=== PATIENT | female | born 1990 | race Caucasian/White ===

== ENCOUNTER 2016-03-09 22:49 | Emergency (ER) | payer MEDICARE, MEDICAID ==
[2016-03-09 23:48] LABS: BASOPHILS 0.3 % (0.0-2.0); EOSINOPHILS 3.1 % (0-7); HEMATOCRIT 45.7 % (36.0-48.0); HEMOGLOBIN 15.1 g/dL (12-16); IMMATURE GRANULOCYTES 0.2 % (0-5); LYMPHOCYTES 26.5 % (15-50); MCV 90.7 fL (80.0-100.0); MEAN PLATELET VOLUME 10.2 fL (7.4-10.4); MONOCYTES 7.1 % (2-11); NEUTROPHILS 62.8 % (40-80); PLATELET COUNT 234 10x3/uL (130-400); RBC 5.04 10x6/uL (4.00-5.40); RDW 13.7 % (11.5-14.5); WBC 11.7 10x3/uL (4.8-10.8)
[2016-03-09 23:56] LABS: CALC OSMOLALITY 279 mosm/kg (275-300); CALCIUM 9.4 mg/dL (8.5-10.1); CARBON DIOXIDE 30.1 mmol/L (21.0-32.0); CHLORIDE - SERUM 105 mmol/L (98-107); CREATININE - SERUM 0.6 mg/dL (0.6-1.3); GLUCOSE 83 mg/dL (74-106); SODIUM 142 mmol/L (136-145); UREA NITROGEN 8 mg/dL (7-18); eGFR NON AFRICAN AMERICAN > 90 mL/min (90-120)
== END 2016-03-10 01:20 | disposition home or self-care (01) ==
LOC: D.ER 22:49
PROVIDERS: Physician Assistant Medical
DX: S02.2XXA Fracture of nasal bones, initial encounter for closed fracture (principal); V44.6XXA Car passenger injured in collision with heavy transport vehicle or bus in traffic accident, initial encounter; Y93.89 Activity, other specified; Y92.410 Unspecified street and highway as the place of occurrence of the external cause; F17.200 Nicotine dependence, unspecified, uncomplicated

== ENCOUNTER 2016-05-13 14:14 | Emergency (ER) | payer MEDICARE, MEDICAID | END 2016-05-13 15:56 | disposition home or self-care (01) | LOC: D.ER 14:14 | DX: S99.921A Unspecified injury of right foot, initial encounter (principal); W20.8XXA Other cause of strike by thrown, projected or falling object, initial encounter; Y93.89 Activity, other specified; Y92.89 Other specified places as the place of occurrence of the external cause; S90.31XA Contusion of right foot, initial encounter; M79.671 Pain in right foot; F17.200 Nicotine dependence, unspecified, uncomplicated ==

== ENCOUNTER 2017-05-21 17:19 | Emergency (ER) | payer MEDICARE, MEDICAID ==
[2017-05-21 18:39] LABS: APPEARANCE HAZY (CLEAR); BILIRUBIN NEGATIVE (NEGATIVE); COLOR YELLOW (YELLOW); GLUCOSE NEGATIVE (NEGATIVE); HCG URINE POSITIVE (NEGATIVE); KETONE NEGATIVE (NEGATIVE); NITRITE NEGATIVE (NEGATIVE); PROTEIN NEGATIVE (NEGATIVE); SPECIFIC GRAVITY 1.025 (1.005-1.020); UROBILINOGEN NORMAL (NORMAL)
[2017-05-21 18:47] LABS: AMORPHOUS SEDIMENT <1+ /lpf (NONE SEEN); BACTERIA MANY /hpf (NONE SEEN); EPITHELIAL CELLS 0-5 /hpf (0-5); GRANULAR CAST 0-5 /lpf (NONE SEEN); HYALINE CAST OCC /lpf (NONE SEEN); MUCUS <1+ /lpf (NONE SEEN); RED CELLS - URINE 0-5 /hpf (0-5)
== END 2017-05-21 19:07 | disposition home or self-care (01) ==
LOC: D.ER 17:19
PROVIDERS: Emergency Medicine
DX: N39.0 Urinary tract infection, site not specified (principal); J20.9 Acute bronchitis, unspecified; F17.200 Nicotine dependence, unspecified, uncomplicated

== ENCOUNTER 2017-06-01 13:44 | Emergency (ER) | payer MEDICARE, MEDICAID ==
[2017-06-01 14:47] LABS: HCG SERUM POSITIVE (NEGATIVE)
[2017-06-01 14:51] LABS: BASOPHILS 0.2 % (0-2); HEMATOCRIT 39.4 % (36.0-48.0); HEMOGLOBIN 13.1 g/dL (12-16); IMMATURE GRANULOCYTES 0.2 % (0-5); MCH 29.8 pg (26.0-34.0); MCHC 33.2 g/dL (31.0-37.0); MCV 89.7 fL (80.0-100.0); MEAN PLATELET VOLUME 9.7 fL (7.4-10.4); MONOCYTES 7.1 % (2-11); NEUTROPHILS 71.5 % (40-80); PLATELET COUNT 235 10x3/uL (130-400); RBC 4.39 10x6/uL (4.00-5.40); RDW 13.2 % (11.5-14.5); WBC 10.9 10x3/uL (4.8-10.8)
[2017-06-01 15:51] LABS: APPEARANCE SLT CLOUDY (CLEAR); BILIRUBIN NEGATIVE (NEGATIVE); COLOR YELLOW (YELLOW); GLUCOSE NEGATIVE (NEGATIVE); KETONE NEGATIVE (NEGATIVE); NITRITE NEGATIVE (NEGATIVE); PROTEIN NEGATIVE (NEGATIVE); SPECIFIC GRAVITY 1.015 (1.005-1.020); UROBILINOGEN NORMAL (NORMAL)
[2017-06-01 15:53] LABS: BACTERIA MODERATE /hpf (NONE SEEN); MUCUS <1+ /lpf (NONE SEEN); RED CELLS - URINE 0-5 /hpf (0-5)
== END 2017-06-01 16:13 | disposition home or self-care (01) ==
LOC: D.ER 13:44
PROVIDERS: Emergency Medicine
DX: O26.851 Spotting complicating pregnancy, first trimester (principal); Z3A.09 9 weeks gestation of pregnancy; N39.0 Urinary tract infection, site not specified; O30.001 Twin pregnancy, unspecified number of placenta and unspecified number of amniotic sacs, first trimester

== ENCOUNTER 2017-06-16 09:05 | Emergency (ER) | payer MEDICARE, MEDICAID ==
[2017-06-17] MEDS ORDERED: ZITHROMAX500 MG PO (19:53)
[2017-06-17] MEDS ORDERED: PRENATAL COMPLE1 TAB PO (19:54)
[2017-06-17] MEDS ORDERED: KEFLEX250 MG PO (19:55)
== END 2017-06-16 10:13 | disposition home or self-care (01) ==
LOC: D.ER 09:05
DX: L03.012 Cellulitis of left finger (principal); F17.200 Nicotine dependence, unspecified, uncomplicated

== ENCOUNTER 2017-06-17 16:36 | Outpatient (CLI) | payer MEDICARE, MEDICAID ==
[2017-06-17 17:40] LABS: BASOPHILS 0.1 % (0-2); HEMOGLOBIN 13.1 g/dL (12-16); IMMATURE GRANULOCYTES 0.2 % (0-5); LYMPHOCYTES 15.1 % (15-50); MCH 29.8 pg (26.0-34.0); MCHC 34.5 g/dL (31.0-37.0); MCV 86.4 fL (80.0-100.0); MEAN PLATELET VOLUME 9.9 fL (7.4-10.4); MONOCYTES 5.6 % (2-11); RDW 12.7 % (11.5-14.5); WBC 14.5 10x3/uL (4.8-10.8)
[2017-06-17 17:40] LABS: APPEARANCE CLEAR (CLEAR); BILIRUBIN NEGATIVE (NEGATIVE); COLOR YELLOW (YELLOW); GLUCOSE NEGATIVE (NEGATIVE); KETONE NEGATIVE (NEGATIVE); NITRITE NEGATIVE (NEGATIVE); PROTEIN TRACE mg/dL (NEGATIVE); SPECIFIC GRAVITY 1.025 (1.005-1.020); UROBILINOGEN NORMAL (NORMAL)
[2017-06-17 17:41] LABS: BACTERIA FEW /hpf (NONE SEEN); MUCUS <1+ /lpf (NONE SEEN); RED CELLS - URINE OCC /hpf (0-5)
[2017-06-17 17:41] LABS: PLATELET COUNT 306 10x3/uL (130-400)
[2017-06-17 17:42] LABS: UDS - AMPHET NEGATIVE QUAL (NEGATIVE); UDS - BARB NEGATIVE QUAL (NEGATIVE); UDS - BENZO NEGATIVE QUAL (NEGATIVE); UDS - COCAINE NEGATIVE QUAL (NEGATIVE); UDS - OPIATE NEGATIVE QUAL (NEGATIVE); UDS - PCP NEGATIVE QUAL (NEGATIVE); UDS - THC POSITIVE QUAL (NEGATIVE)
[2017-06-17 17:46] LABS: ALBUMIN 3.1 g/dL (3.4-5.0); ALKALINE PHOSPHATASE 63 U/L (46-116); ALT (SGPT) 29 U/L (10-68); CALC OSMOLALITY 262 mosm/kg (275-300); CALCIUM 8.9 mg/dL (8.5-10.1); CARBON DIOXIDE 20.7 mmol/L (21.0-32.0); CHLORIDE - SERUM 99 mmol/L (98-107); CREATININE - SERUM 0.4 mg/dL (0.6-1.3); GLUCOSE 88 mg/dL (74-106); POTASSIUM - SERUM 3.8 mmol/L (3.5-5.1); PROTEIN - SERUM 8.1 g/dL (6.4-8.2); SODIUM 133 mmol/L (136-145); UREA NITROGEN 7 mg/dL (7-18); eGFR NON AFRICAN AMERICAN > 90 mL/min (90-120)
[2017-06-17 17:53] LABS: HCG SERUM POSITIVE (NEGATIVE)
[2017-06-17] MEDS ORDERED: ZITHROMAX500 MG PO (19:53)
[2017-06-17] MEDS ORDERED: PRENATAL COMPLE1 TAB PO (19:54)
[2017-06-17] MEDS ORDERED: KEFLEX250 MG PO (19:55)
== END 2017-06-17 22:55 | disposition left against medical advice (07) ==
LOC: OBSVTIME → D.LD 16:36 → D.LDO 16:36 → D.ER 16:36 → D.EDHOLD 18:18 → OBSVTIME 18:18 → D.LD 18:18 → D.ER 18:18 → D.EDHOLD 18:37 → D.LD 18:37 → EDSTATUS 22:51 → D.LD 22:55 → D.LDO 22:55
PROVIDERS: Physician Assistant Medical
DX: O26.891 Other specified pregnancy related conditions, first trimester (principal); Z3A.11 11 weeks gestation of pregnancy; R11.0 Nausea; L08.9 Local infection of the skin and subcutaneous tissue, unspecified; B95.8 Unspecified staphylococcus as the cause of diseases classified elsewhere

== ENCOUNTER 2017-07-13 23:10 | Emergency (ER) | payer MEDICARE ==
[~2017-07-13 23:10] MED LIST: KEFLEX250 MG PO; PRENATAL COMPLE1 TAB PO; ZITHROMAX500 MG PO
[2017-07-14 00:01] LABS: HEMATOCRIT 36.7 % (36.0-48.0); HEMOGLOBIN 12.7 g/dL (12-16); LYMPHOCYTES 21.4 % (15-50); MCH 29.5 pg (26.0-34.0); MCHC 34.6 g/dL (31.0-37.0); MCV 85.3 fL (80.0-100.0); MEAN PLATELET VOLUME 9.2 fL (7.4-10.4); NEUTROPHILS 72.6 % (40-80); RDW 12.9 % (11.5-14.5); WBC 9.6 10x3/uL (4.8-10.8)
[2017-07-14 00:03] LABS: PLATELET COUNT 224 10x3/uL (130-400)
[2017-07-14 00:07] LABS: APPEARANCE HAZY (CLEAR); BILIRUBIN NEGATIVE (NEGATIVE); COLOR YELLOW (YELLOW); GLUCOSE NEGATIVE (NEGATIVE); KETONE NEGATIVE (NEGATIVE); NITRITE NEGATIVE (NEGATIVE); PROTEIN 2+ mg/dL (NEGATIVE); SPECIFIC GRAVITY 1.025 (1.005-1.020); UROBILINOGEN NORMAL (NORMAL)
[2017-07-14 00:08] LABS: BACTERIA FEW /hpf (NONE SEEN); EPITHELIAL CELLS 0-5 /hpf (0-5); MUCUS <1+ /lpf (NONE SEEN); RED CELLS - URINE 0-5 /hpf (0-5); WHITE CELLS - URINE 0-5 /hpf (0-5)
[2017-07-14 00:19] LABS: ALKALINE PHOSPHATASE 55 U/L (46-116); ALT (SGPT) 17 U/L (10-68); BILIRUBIN - TOTAL 0.26 mg/dL (0.2-1.3); CALC OSMOLALITY 269 mosm/kg (275-300); CALCIUM 8.7 mg/dL (8.5-10.1); CARBON DIOXIDE 24.3 mmol/L (21.0-32.0); CHLORIDE - SERUM 103 mmol/L (98-107); CREATININE - SERUM 0.5 mg/dL (0.6-1.3); GLUCOSE 102 mg/dL (74-106); POTASSIUM - SERUM 3.4 mmol/L (3.5-5.1); PROTEIN - SERUM 7.3 g/dL (6.4-8.2); SODIUM 136 mmol/L (136-145); UREA NITROGEN 6 mg/dL (7-18); eGFR NON AFRICAN AMERICAN > 90 mL/min (90-120)
[2017-07-14 00:39] LABS: HCG - QUANTITATIVE (MATERNAL) 43385 mIU/mL
== END 2017-07-14 01:51 | disposition home or self-care (01) ==
LOC: D.ER 23:10
PROVIDERS: Family Medicine
DX: O21.9 Vomiting of pregnancy, unspecified (principal); Z3A.14 14 weeks gestation of pregnancy; F17.200 Nicotine dependence, unspecified, uncomplicated

== ENCOUNTER 2017-07-28 21:19 | Emergency (ER) | payer MEDICARE ==
[~2017-07-28] VITALS: Ht 1788.2 cm; Wt 81.6 kg
[2017-07-28 21:29] VITALS: Ht 1788.2 cm; Wt 81.6 kg
[2017-07-28] MEDS ORDERED: ZOFRAN4 MG OTR (21:31)
[2017-07-28 22:05] LABS: BASOPHILS 0.1 % (0-2); EOSINOPHILS 3.6 % (0-7); HEMATOCRIT 33.2 % (36.0-48.0); HEMOGLOBIN 11.3 g/dL (12-16); IMMATURE GRANULOCYTES 0.4 % (0-5); MCH 29.7 pg (26.0-34.0); MCV 87.4 fL (80.0-100.0); MEAN PLATELET VOLUME 9.7 fL (7.4-10.4); MONOCYTES 5.3 % (2-11); NEUTROPHILS 72.6 % (40-80); PLATELET COUNT 222 10x3/uL (130-400); RDW 13.5 % (11.5-14.5); WBC 10.8 10x3/uL (4.8-10.8)
[2017-07-28 22:19] LABS: ALBUMIN 2.7 g/dL (3.4-5.0); ALKALINE PHOSPHATASE 55 U/L (46-116); ALT (SGPT) 13 U/L (10-68); BILIRUBIN - TOTAL 0.12 mg/dL (0.2-1.3); CALC OSMOLALITY 272 mosm/kg (275-300); CALCIUM 8.4 mg/dL (8.5-10.1); CARBON DIOXIDE 24.2 mmol/L (21.0-32.0); CHLORIDE - SERUM 105 mmol/L (98-107); CREATININE - SERUM 0.5 mg/dL (0.6-1.3); GLUCOSE 89 mg/dL (74-106); POTASSIUM - SERUM 3.6 mmol/L (3.5-5.1); PROTEIN - SERUM 6.6 g/dL (6.4-8.2); SODIUM 138 mmol/L (136-145); UREA NITROGEN 6 mg/dL (7-18); eGFR NON AFRICAN AMERICAN > 90 mL/min (90-120)
[2017-07-28 23:48] LABS: APPEARANCE CLEAR (CLEAR); BILIRUBIN NEGATIVE (NEGATIVE); COLOR YELLOW (YELLOW); GLUCOSE NEGATIVE (NEGATIVE); KETONE NEGATIVE (NEGATIVE); NITRITE NEGATIVE (NEGATIVE); PROTEIN NEGATIVE (NEGATIVE); SPECIFIC GRAVITY 1.015 (1.005-1.020); UROBILINOGEN NORMAL (NORMAL)
[2017-07-28] MEDS ORDERED: ZOFRAN ODT4 MG/UDTAB PO (23:50)
[2017-07-28 23:54] LABS: UDS - AMPHET NEGATIVE QUAL (NEGATIVE); UDS - BARB NEGATIVE QUAL (NEGATIVE); UDS - BENZO POSITIVE QUAL (NEGATIVE); UDS - COCAINE NEGATIVE QUAL (NEGATIVE); UDS - OPIATE NEGATIVE QUAL (NEGATIVE); UDS - PCP NEGATIVE QUAL (NEGATIVE); UDS - THC POSITIVE QUAL (NEGATIVE)
[2017-07-29 00:08] VITALS: BP 111/73
== END 2017-07-29 00:10 | disposition home or self-care (01) ==
LOC: D.ER 21:19
PROVIDERS: Emergency Medicine
DX: O21.9 Vomiting of pregnancy, unspecified (principal); Z3A.17 17 weeks gestation of pregnancy; O30.002 Twin pregnancy, unspecified number of placenta and unspecified number of amniotic sacs, second trimester; N39.0 Urinary tract infection, site not specified; F17.200 Nicotine dependence, unspecified, uncomplicated

== ENCOUNTER 2017-08-31 21:34 | Outpatient (CLI) | payer MEDICARE ==
[~2017-08-31 21:34] MED LIST changes: +ZOFRAN ODT4 MG/UDTAB PO; +ZOFRAN4 MG OTR
[2017-08-31 22:57] LABS: APPEARANCE CLEAR (CLEAR); BILIRUBIN NEGATIVE (NEGATIVE); COLOR YELLOW (YELLOW); GLUCOSE NEGATIVE (NEGATIVE); KETONE SMALL mg/dL (NEGATIVE); NITRITE NEGATIVE (NEGATIVE); PROTEIN NEGATIVE (NEGATIVE); SPECIFIC GRAVITY 1.015 (1.005-1.020); UROBILINOGEN NORMAL (NORMAL)
[2017-08-31 23:00] LABS: UDS - AMPHET NEGATIVE QUAL (NEGATIVE); UDS - BARB NEGATIVE QUAL (NEGATIVE); UDS - BENZO NEGATIVE QUAL (NEGATIVE); UDS - COCAINE NEGATIVE QUAL (NEGATIVE); UDS - OPIATE NEGATIVE QUAL (NEGATIVE); UDS - PCP NEGATIVE QUAL (NEGATIVE); UDS - THC POSITIVE QUAL (NEGATIVE)
[2017-09-01 00:05] LABS: HEMATOCRIT 33.9 % (36.0-48.0); HEMOGLOBIN 11.7 g/dL (12-16); LYMPHOCYTES 16.9 % (15-50); MCH 29.8 pg (26.0-34.0); MCHC 34.5 g/dL (31.0-37.0); MCV 86.3 fL (80.0-100.0); MEAN PLATELET VOLUME 9.2 fL (7.4-10.4); NEUTROPHILS 78.2 % (40-80); PLATELET COUNT 230 10x3/uL (130-400); RBC 3.93 10x6/uL (4.00-5.40); RDW 13.6 % (11.5-14.5); WBC 13.6 10x3/uL (4.8-10.8)
[2017-09-01 00:36] LABS: ALBUMIN 2.6 g/dL (3.4-5.0); ALKALINE PHOSPHATASE 66 U/L (46-116); ALT (SGPT) 10 U/L (10-68); BILIRUBIN - TOTAL 0.23 mg/dL (0.2-1.3); CALC OSMOLALITY 265 mosm/kg (275-300); CALCIUM 7.9 mg/dL (8.5-10.1); CHLORIDE - SERUM 103 mmol/L (98-107); CREATININE - SERUM 0.3 mg/dL (0.6-1.3); GLUCOSE 72 mg/dL (74-106); PROTEIN - SERUM 6.5 g/dL (6.4-8.2); SODIUM 135 mmol/L (136-145); UREA NITROGEN 4 mg/dL (7-18); eGFR NON AFRICAN AMERICAN > 90 mL/min (90-120)
[2017-11-02 09:35] VITALS: BMI 30.6
== END 2017-09-01 00:49 | disposition home or self-care (01) ==
LOC: D.LD 21:34 → D.LDO 21:34
PROVIDERS: Obstetrics & Gynecology
DX: O26.892 Other specified pregnancy related conditions, second trimester (principal); Z3A.22 22 weeks gestation of pregnancy; O30.002 Twin pregnancy, unspecified number of placenta and unspecified number of amniotic sacs, second trimester; M54.5 Low back pain; R10.31 Right lower quadrant pain; R10.2 Pelvic and perineal pain; R11.2 Nausea with vomiting, unspecified; R19.7 Diarrhea, unspecified

== ENCOUNTER → 2017-10-18 09:36 | Outpatient (CLI) | payer MEDICARE ==
[~2017-10-18 09:36] MED LIST changes: +KEFLEX500 MG PO
[2017-11-02 09:35] VITALS: BMI 30.6
== END | disposition home or self-care (01) ==
LOC: D.LDO 09:36
PROVIDERS: Obstetrics & Gynecology
DX: O26.899 Other specified pregnancy related conditions, unspecified trimester (principal); Z3A.00 Weeks of gestation of pregnancy not specified

== ENCOUNTER → 2017-10-19 09:58 | Outpatient (CLI) | payer MEDICARE ==
[2017-11-02 09:35] VITALS: BMI 30.6
== END | disposition home or self-care (01) ==
LOC: D.LDO 09:58
DX: O26.899 Other specified pregnancy related conditions, unspecified trimester (principal); Z3A.00 Weeks of gestation of pregnancy not specified; O30.009 Twin pregnancy, unspecified number of placenta and unspecified number of amniotic sacs, unspecified trimester

== ENCOUNTER 2017-11-01 16:04 | Outpatient (CLI) | payer MEDICARE ==
[~2017-11-01 16:04] MED LIST changes: -KEFLEX500 MG PO
[2017-11-01 18:18] LABS: APPEARANCE CLEAR (CLEAR); BILIRUBIN NEGATIVE (NEGATIVE); COLOR YELLOW (YELLOW); GLUCOSE NEGATIVE (NEGATIVE); KETONE LARGE mg/dL (NEGATIVE); NITRITE NEGATIVE (NEGATIVE); PROTEIN NEGATIVE (NEGATIVE); UROBILINOGEN NORMAL (NORMAL)
[2017-11-01 18:20] LABS: BACTERIA MODERATE /hpf (NONE SEEN); EPITHELIAL CELLS 0-5 /hpf (0-5); WHITE CELLS - URINE 0-5 /hpf (0-5)
[2017-11-01 18:25] LABS: MUCUS >1+ /lpf (NONE SEEN)
[2017-11-01 19:45] LABS: UDS - AMPHET NEGATIVE QUAL (NEGATIVE); UDS - BARB NEGATIVE QUAL (NEGATIVE); UDS - BENZO NEGATIVE QUAL (NEGATIVE); UDS - COCAINE NEGATIVE QUAL (NEGATIVE); UDS - OPIATE NEGATIVE QUAL (NEGATIVE); UDS - PCP NEGATIVE QUAL (NEGATIVE); UDS - THC POSITIVE QUAL (NEGATIVE)
[2017-11-02] MEDS ORDERED: KEFLEX500 MG PO (19:17)
== END 2017-11-01 18:56 ==
LOC: D.LDO 16:04
PROVIDERS: Obstetrics & Gynecology
DX: O23.00 Infections of kidney in pregnancy, unspecified trimester (principal); Z3A.00 Weeks of gestation of pregnancy not specified

== ENCOUNTER 2017-11-01 21:38 | Inpatient (IN) | payer MEDICARE ==
[~2017-11-01] VITALS: Ht 167.6 cm; Wt 86.2 kg
[2017-11-01 23:51] LABS: APPEARANCE HAZY (CLEAR); BILIRUBIN NEGATIVE (NEGATIVE); COLOR DK YELLOW (YELLOW); GLUCOSE NEGATIVE (NEGATIVE); KETONE LARGE mg/dL (NEGATIVE); NITRITE NEGATIVE (NEGATIVE); PROTEIN 2+ mg/dL (NEGATIVE)
[2017-11-01 23:52] LABS: BACTERIA MANY /hpf (NONE SEEN); EPITHELIAL CELLS 0-5 /hpf (0-5); MUCUS <1+ /lpf (NONE SEEN); RED CELLS - URINE 0-5 /hpf (0-5); WHITE CELLS - URINE 0-5 /hpf (0-5)
[2017-11-02 00:20] VITALS: BP 131/76; BMI 30.7
[2017-11-02 09:30] VITALS: BP 130/68
[2017-11-02 09:35] VITALS: Ht 167.6 cm; Wt 86.2 kg
[2017-11-02 12:04] LABS: APPEARANCE HAZY (CLEAR); COLOR DK YELLOW (YELLOW); GLUCOSE NEGATIVE (NEGATIVE); NITRITE NEGATIVE (NEGATIVE); PROTEIN NEGATIVE (NEGATIVE); SPECIFIC GRAVITY 1.015 (1.005-1.020)
[2017-11-02 12:05] LABS: BACTERIA MODERATE /hpf (NONE SEEN); BILIRUBIN NEGATIVE (NEGATIVE); KETONE NEGATIVE (NEGATIVE); MUCUS <1+ /lpf (NONE SEEN); RED CELLS - URINE OCC /hpf (0-5); WHITE CELLS - URINE OCC /hpf (0-5)
[2017-11-02] MEDS ORDERED: KEFLEX500 MG PO (19:17)
== END 2017-11-02 14:15 | disposition left against medical advice (07) | DRG 781 ==
LOC: D.LD 21:38
PROVIDERS: Obstetrics & Gynecology
DX: O23.03 Infections of kidney in pregnancy, third trimester (principal); O99.323 Drug use complicating pregnancy, third trimester; Z3A.31 31 weeks gestation of pregnancy; O99.333 Smoking (tobacco) complicating pregnancy, third trimester; F12.20 Cannabis dependence, uncomplicated; O30.033 Twin pregnancy, monochorionic/diamniotic, third trimester

== ENCOUNTER → 2017-11-05 17:16 | Outpatient (CLI) | payer MEDICARE ==
[2017-11-02 09:35] VITALS: BMI 30.6
[~2017-11-05 17:16] MED LIST changes: +KEFLEX500 MG PO
[2017-11-05 18:11] LABS: APPEARANCE CLOUDY (CLEAR); BILIRUBIN NEGATIVE (NEGATIVE); COLOR YELLOW (YELLOW); GLUCOSE NEGATIVE (NEGATIVE); KETONE NEGATIVE (NEGATIVE); NITRITE NEGATIVE (NEGATIVE); PROTEIN NEGATIVE (NEGATIVE); SPECIFIC GRAVITY 1.015 (1.005-1.020); UROBILINOGEN NORMAL (NORMAL)
[2017-11-05 18:18] LABS: UDS - AMPHET NEGATIVE QUAL (NEGATIVE); UDS - BARB NEGATIVE QUAL (NEGATIVE); UDS - BENZO NEGATIVE QUAL (NEGATIVE); UDS - COCAINE NEGATIVE QUAL (NEGATIVE); UDS - OPIATE NEGATIVE QUAL (NEGATIVE); UDS - PCP NEGATIVE QUAL (NEGATIVE); UDS - THC POSITIVE QUAL (NEGATIVE)
== END | disposition home or self-care (01) ==
LOC: D.LDO 17:16
PROVIDERS: Obstetrics & Gynecology
DX: O30.003 Twin pregnancy, unspecified number of placenta and unspecified number of amniotic sacs, third trimester (principal); Z3A.31 31 weeks gestation of pregnancy; R60.0 Localized edema

== ENCOUNTER → 2017-11-07 14:23 | Outpatient (CLI) | payer MEDICARE ==
[2017-11-02 09:35] VITALS: BMI 30.6
== END | disposition home or self-care (01) ==
LOC: D.LDO 14:23
DX: O30.009 Twin pregnancy, unspecified number of placenta and unspecified number of amniotic sacs, unspecified trimester (principal); Z3A.00 Weeks of gestation of pregnancy not specified

== ENCOUNTER → 2017-11-10 11:58 | Outpatient (CLI) | payer MEDICARE ==
[2017-11-02 09:35] VITALS: BMI 30.6
== END | disposition home or self-care (01) ==
LOC: D.LDO 11:58
DX: O30.003 Twin pregnancy, unspecified number of placenta and unspecified number of amniotic sacs, third trimester (principal); Z3A.32 32 weeks gestation of pregnancy

== ENCOUNTER → 2017-11-14 12:57 | Outpatient (CLI) | payer MEDICARE ==
[2017-11-02 09:35] VITALS: BMI 30.6
[2017-11-14 13:58] LABS: APPEARANCE HAZY (CLEAR); BILIRUBIN NEGATIVE (NEGATIVE); COLOR YELLOW (YELLOW); GLUCOSE NEGATIVE (NEGATIVE); KETONE NEGATIVE (NEGATIVE); NITRITE NEGATIVE (NEGATIVE); PROTEIN NEGATIVE (NEGATIVE); UROBILINOGEN NORMAL (NORMAL)
== END | disposition home or self-care (01) ==
LOC: D.LDO 12:57
PROVIDERS: Obstetrics & Gynecology
DX: O30.003 Twin pregnancy, unspecified number of placenta and unspecified number of amniotic sacs, third trimester (principal); Z3A.33 33 weeks gestation of pregnancy; O36.8130 Decreased fetal movements, third trimester, not applicable or unspecified

== ENCOUNTER → 2017-11-21 12:57 | Outpatient (CLI) | payer MEDICARE ==
[2017-11-02 09:35] VITALS: BMI 30.6
== END | disposition home or self-care (01) ==
LOC: D.LDO 12:57
DX: O30.003 Twin pregnancy, unspecified number of placenta and unspecified number of amniotic sacs, third trimester (principal); Z3A.34 34 weeks gestation of pregnancy

== ENCOUNTER 2017-11-30 18:48 | Inpatient (IN) | payer MEDICARE ==
[~2017-11-30] VITALS: Ht 167.6 cm; Wt 86.6 kg
[2017-11-30] VITALS (7 sets, daily range): BP systolic 123–134; BP diastolic 60–80; Ht 167.6 cm; Wt 86.6 kg
--- NOTE | ~2017-11-30 | OP ---
PATIENT NAME: SAMMIE GORDON MEDICAL RECORD: [id number] :90 LOCATION:[id number] ADMISSION DATE:11/30/17 SURGEON: CHRISTIAN MARTINEZ MD DATE OF OPERATION: 11/30/2017 PREOPERATIVE DIAGNOSES: 1. labor at approximately 36 weeks' gestation. 2. Twin gestation. 3. Breech transverse lie. POSTOPERATIVE DIAGNOSES: 1. labor at approximately 36 weeks' gestation. 2. Twin gestation. 3. Breech transverse lie. PROCEDURE: Primary low transverse section. ATTENDING: Christian Martinez MD ANESTHETIC: Spinal. FINDINGS: Viable male infants. Twin A in a breech presentation with Apgars of 8 and 9 and weight 4 pounds 11 ounces. Twin B was found to be in a vertex presentation with Apgars of 8 and 9 and weight 5.0 pounds. The uterus was unremarkable as well as what was visualized of the abdominal anatomy. SPECIMENS REMOVED: Placenta, marked for twin A and twin B. SPECIMEN DISPOSITION: Pathology. FLUIDS: Lactated Ringer's 1500 cc. URINE OUTPUT: Clear urine 100 cc. COMPLICATIONS: None. DRAINS: None. ESTIMATED BLOOD LOSS: 800 cc. INDICATION: The patient is a 27-year-old multiparous female with twin gestation and breech transverse lie, who presents jessica every 2-3 minutes. The patient's previous exam in the clinic was 1 cm and currently her cervix is 3 cm and 50% to 80% with continued painful regular contractions. The patient is consented for primary low transverse section for near term, labor. DESCRIPTION OF PROCEDURE: After informed consent was assured, the patient was taken to the operating room, where anesthetic was obtained. The patient was now prepped and draped in the usual sterile fashion. After assessment of the anesthetic, a low transverse incision was made on the abdomen and the incision was carried down to the fascia. The fascia was opened in the midline and the dissection was carried out laterally. Rectus bellies were dissected free superiorly and inferiorly and then in the midline. Peritoneum was entered bluntly and the rectus bellies were further . [facility] OPERATIVE REPORT [id number] SAMMIE GORDON all-purpose retractor was inserted and the vesicouterine flap was developed. The bladder blade was now reinserted into the space that has been created and a low transverse hysterotomy has been performed. Infant A was delivered onto the abdomen atraumatically using standard breech extraction technique. Cord was clamped and cut, and the infant was passed to the attendant. The bag of the second twin was now ruptured and this twin was now found to be in a vertex presentation. This twin was delivered atraumatically. The cord was doubly clamped and cut and marked as B and passed to the awaiting attendant. The after cord blood sample was gathered from both A and B. The placentas were delivered and the uterus was exteriorized, cleared of all clot and debris. The hysterotomy was closed in a running-locked fashion with chromic stitch and the posterior cul-de-sac was irrigated. Uterus was returned to the abdomen and hysterotomy was inspected and found to be hemostatic. The peritoneum was reapproximated in the midline loosely with chromic stitch and then the fascia was closed with looped PDS. Subcutaneous tissue was irrigated. Bleeding vessels were cauterized and the skin was reapproximated with lissett. Sterile dressing was applied. Sponge, lap, and needle counts were correct times 2. TRANSINT:[id number] Voice Confirmation ID: [id number] DOCUMENT ID: [id number] CHRISTIAN MARTINEZ MD at 0132 CC: [id number] DICTATION DATE: 11/30/172141 DIRECTOR OF INDUSTRIAL RELATIONS: 12/01/17 0042 ADM IN [facility] [address] [place] [address]
[2017-11-30 20:20] LABS: HEMATOCRIT 41.1 % (36.0-48.0); HEMOGLOBIN 14.3 g/dL (12-16); MCHC 34.8 g/dL (31.0-37.0); MCV 86.3 fL (80.0-100.0); MEAN PLATELET VOLUME 12.2 fL (7.4-10.4); RBC 4.76 10x6/uL (4.00-5.40); RDW 14.1 % (11.5-14.5); WBC 16.1 10x3/uL (4.8-10.8)
[2017-11-30 22:10] LABS: UDS - AMPHET NEGATIVE QUAL (NEGATIVE); UDS - BARB NEGATIVE QUAL (NEGATIVE); UDS - BENZO NEGATIVE QUAL (NEGATIVE); UDS - COCAINE NEGATIVE QUAL (NEGATIVE); UDS - OPIATE NEGATIVE QUAL (NEGATIVE); UDS - PCP NEGATIVE QUAL (NEGATIVE); UDS - THC POSITIVE QUAL (NEGATIVE)
[2017-11-30 22:22] LABS: APPEARANCE CLEAR (CLEAR); COLOR YELLOW (YELLOW); NITRITE NEGATIVE (NEGATIVE)
[2017-11-30 22:23] LABS: BILIRUBIN NEGATIVE (NEGATIVE); GLUCOSE NEGATIVE (NEGATIVE); KETONE LARGE mg/dL (NEGATIVE); PROTEIN TRACE mg/dL (NEGATIVE); UROBILINOGEN NORMAL (NORMAL)
[2017-11-30 22:25] LABS: BACTERIA FEW /hpf (NONE SEEN); EPITHELIAL CELLS 0-5 /hpf (0-5); MUCUS >1+ /lpf (NONE SEEN); RED CELLS - URINE OCC /hpf (0-5); WHITE CELLS - URINE 0-5 /hpf (0-5)
[2017-12-01 00:17] VITALS: BP 131/70
[2017-12-01 04:27] VITALS: BP 114/66
[2017-12-01 06:16] LABS: BASOPHILS 0.1 % (0-2); EOSINOPHILS 0.3 % (0-7); HEMATOCRIT 35.8 % (36.0-48.0); IMMATURE GRANULOCYTES 0.4 % (0-5); LYMPHOCYTES 14.4 % (15-50); MCH 29.3 pg (26.0-34.0); MCHC 33.5 g/dL (31.0-37.0); MCV 87.3 fL (80.0-100.0); MEAN PLATELET VOLUME 11.6 fL (7.4-10.4); MONOCYTES 6.1 % (2-11); NEUTROPHILS 78.7 % (40-80); RDW 14.2 % (11.5-14.5)
[2017-12-01 06:20] LABS: PLATELET COUNT 153 10x3/uL (130-400)
[2017-12-01 07:21] VITALS: BP 122/69
[2017-12-01 12:52] LABS: UDS - AMPHET NEGATIVE QUAL (NEGATIVE); UDS - BARB NEGATIVE QUAL (NEGATIVE); UDS - BENZO POSITIVE QUAL (NEGATIVE); UDS - COCAINE NEGATIVE QUAL (NEGATIVE); UDS - OPIATE POSITIVE QUAL (NEGATIVE); UDS - PCP NEGATIVE QUAL (NEGATIVE); UDS - THC POSITIVE QUAL (NEGATIVE)
[2017-12-01 19:19] VITALS: BP 146/97
[2017-12-02 06:15] LABS: RAPID PLASMA REAGIN Non Reactive (Non Reactive)
[2017-12-05 15:21] LABS: UDSC - AMPHET Negative ng/mL (Cutoff=1000); UDSC - BARB Negative ng/mL (Cutoff=300); UDSC - BENZO Negative (Cutoff=300); UDSC - COC Negative ng/mL (Cutoff=300); UDSC - METH Negative ng/mL (Cutoff=300); UDSC - OPIATES Negative (Cutoff=300); UDSC - PCP Negative ng/mL (Cutoff=25); UDSC - PROPOXY Negative ng/mL (Cutoff=300); UDSC - THC Positive (Cutoff=50)
== END 2017-12-01 20:50 | disposition left against medical advice (07) | DRG 788 ==
LOC: D.LDO 18:48 → D.LD 19:36
PROVIDERS: Obstetrics & Gynecology
PROC: 10D00Z1 Extraction of Products of Conception, Low, Open Approach (ICD-10-PCS; principal; 2017-11-30 21:00)
DX: O32.1XX0 Maternal care for breech presentation, not applicable or unspecified (principal); O30.033 Twin pregnancy, monochorionic/diamniotic, third trimester; Z3A.36 36 weeks gestation of pregnancy; Z37.2 Twins, both liveborn

== ENCOUNTER 2018-01-24 12:54 | Emergency (ER) | payer MEDICARE ==
[~2018-01-24] VITALS: Ht 167.6 cm; Wt 70.9 kg
[2018-01-24 13:09] VITALS: Ht 167.6 cm; Wt 70.9 kg
[2018-01-24 14:00] LABS: BASOPHILS 0.3 % (0-2); EOSINOPHILS 0.4 % (0-7); HEMATOCRIT 45.1 % (36.0-48.0); HEMOGLOBIN 15.1 g/dL (12-16); IMMATURE GRANULOCYTES 0.2 % (0-5); LYMPHOCYTES 11.4 % (15-50); MCH 28.8 pg (26.0-34.0); MCHC 33.5 g/dL (31.0-37.0); MCV 85.9 fL (80.0-100.0); MEAN PLATELET VOLUME 10.5 fL (7.4-10.4); MONOCYTES 2.8 % (2-11); NEUTROPHILS 84.9 % (40-80); RBC 5.25 10x6/uL (4.00-5.40); RDW 14.6 % (11.5-14.5); WBC 11.8 10x3/uL (4.8-10.8)
[2018-01-24 14:12] LABS: ALBUMIN 3.8 g/dL (3.4-5.0); ALKALINE PHOSPHATASE 80 U/L (46-116); ALT (SGPT) 31 U/L (10-68); CARBON DIOXIDE 30.3 mmol/L (21.0-32.0); CHLORIDE - SERUM 102 mmol/L (98-107); CREATININE - SERUM 0.8 mg/dL (0.6-1.3); PROTEIN - SERUM 7.9 g/dL (6.4-8.2); SODIUM 144 mmol/L (136-145); UREA NITROGEN 11 mg/dL (7-18); eGFR NON AFRICAN AMERICAN > 90 mL/min (90-120)
[2018-01-24 14:17] LABS: PLATELET COUNT 321 10x3/uL (130-400)
[2018-01-24 14:27] LABS: CALC OSMOLALITY 287 mosm/kg (275-300); GLUCOSE 126 mg/dL (74-106)
[2018-01-24 14:28] LABS: POTASSIUM - SERUM 2.8 mmol/L (3.5-5.1)
[2018-01-24 15:41] LABS: APPEARANCE HAZY (CLEAR); BILIRUBIN NEGATIVE (NEGATIVE); COLOR YELLOW (YELLOW); GLUCOSE NEGATIVE (NEGATIVE); KETONE NEGATIVE (NEGATIVE); NITRITE NEGATIVE (NEGATIVE); PROTEIN TRACE mg/dL (NEGATIVE); UROBILINOGEN NORMAL (NORMAL)
[2018-01-24 15:42] LABS: EPITHELIAL CELLS 0-5 /hpf (0-5); RED CELLS - URINE OCC /hpf (0-5)
[2018-01-24 15:44] LABS: BACTERIA FEW /hpf (NONE SEEN); MUCUS <1+ /lpf (NONE SEEN)
[2018-01-24 15:45] LABS: HCG URINE NEGATIVE (NEGATIVE)
[2018-01-24] MEDS ORDERED: PHENERGAN25 MG RC (18:10)
[2018-01-24 18:35] VITALS: BP 136/82
[2018-01-28] MEDS ORDERED: NORCO 10-325 TA1 TAB PO (01:13)
[2018-01-28] MEDS ORDERED: K-DUR20 MEQ PO (01:53)
== END 2018-01-24 18:36 | disposition home or self-care (01) ==
LOC: D.ER 12:54
PROVIDERS: Family Medicine
DX: A08.4 Viral intestinal infection, unspecified (principal); F17.200 Nicotine dependence, unspecified, uncomplicated

== ENCOUNTER 2018-01-26 10:43 | Emergency (ER) | payer MEDICARE ==
[~2018-01-26] VITALS: Ht 167.6 cm; Wt 70.9 kg
[~2018-01-26 10:43] MED LIST changes: +PHENERGAN25 MG RC
[2018-01-26 10:48] VITALS: Ht 167.6 cm; Wt 70.9 kg
[2018-01-26] MEDS ORDERED: TORADOL10 MG PO (13:35)
[2018-01-26] MEDS ORDERED: PHENERGAN25 M1 PO (13:35)
[2018-01-26 14:04] VITALS: BP 136/84
[2018-01-28] MEDS ORDERED: NORCO 10-325 TA1 TAB PO (01:13)
[2018-01-28] MEDS ORDERED: K-DUR20 MEQ PO (01:53)
[2018-01-30] MEDS ORDERED: PHENERGAN25 MG RC (13:19)
== END 2018-01-26 14:05 | disposition home or self-care (01) ==
LOC: D.ER 10:43
DX: R10.11 Right upper quadrant pain (principal); R11.2 Nausea with vomiting, unspecified; R19.7 Diarrhea, unspecified; F17.200 Nicotine dependence, unspecified, uncomplicated

== ENCOUNTER 2018-01-27 23:04 | Emergency (ER) | payer MEDICARE ==
[2018-01-27 23:31] LABS: BASOPHILS 0.2 % (0-2); EOSINOPHILS 0.3 % (0-7); HEMATOCRIT 44.9 % (36.0-48.0); HEMOGLOBIN 15.1 g/dL (12-16); IMMATURE GRANULOCYTES 0.3 % (0-5); LYMPHOCYTES 17.3 % (15-50); MCH 28.7 pg (26.0-34.0); MCHC 33.6 g/dL (31.0-37.0); MCV 85.4 fL (80.0-100.0); MEAN PLATELET VOLUME 10.2 fL (7.4-10.4); MONOCYTES 6.6 % (2-11); NEUTROPHILS 75.3 % (40-80); PLATELET COUNT 289 10x3/uL (130-400); RBC 5.26 10x6/uL (4.00-5.40); RDW 14.5 % (11.5-14.5); WBC 10.5 10x3/uL (4.8-10.8)
[2018-01-27 23:46] LABS: HCG SERUM NEGATIVE (NEGATIVE)
[2018-01-27 23:52] LABS: ALBUMIN 3.6 g/dL (3.4-5.0); ALKALINE PHOSPHATASE 69 U/L (46-116); ALT (SGPT) 40 U/L (10-68); AMYLASE - SERUM 36 U/L (25-115); BILIRUBIN - TOTAL 0.52 mg/dL (0.2-1.3); CALC OSMOLALITY 286 mosm/kg (275-300); CALCIUM 8.9 mg/dL (8.5-10.1); CARBON DIOXIDE 35.1 mmol/L (21.0-32.0); CHLORIDE - SERUM 100 mmol/L (98-107); CREATININE - SERUM 0.8 mg/dL (0.6-1.3); GLUCOSE 115 mg/dL (74-106); LIPASE 80 U/L (73-393); PROTEIN - SERUM 7.6 g/dL (6.4-8.2); SODIUM 144 mmol/L (136-145); UREA NITROGEN 11 mg/dL (7-18); eGFR NON AFRICAN AMERICAN 90 mL/min (90-120)
[2018-01-27 23:54] LABS: POTASSIUM - SERUM 2.9 mmol/L (3.5-5.1)
== END 2018-01-28 02:21 | disposition home or self-care (01) ==
LOC: D.ER 23:04
PROVIDERS: Emergency Medicine
DX: K80.50 Calculus of bile duct without cholangitis or cholecystitis without obstruction (principal); R11.2 Nausea with vomiting, unspecified; F17.200 Nicotine dependence, unspecified, uncomplicated

== ENCOUNTER 2018-01-31 05:48 | Day surgery (SDC) | payer MEDICARE ==
[~2018-01-31] VITALS: Ht 167.6 cm; Wt 66.7 kg
--- NOTE | ~2018-01-31 | OP ---
PATIENT NAME: SAMMIE GORDON MEDICAL RECORD: [id number] :90 LOCATION:[facility] ADMISSION DATE: SURGEON: LUCAS VELA MD DATE OF OPERATION: 01/31/2018 PREOPERATIVE DIAGNOSES: 1. Acute cholecystitis. 2. Tobacco dependence syndrome. POSTOPERATIVE DIAGNOSES: 1. Acute cholecystitis. 2. Tobacco dependence syndrome. PROCEDURE: Laparoscopic cholecystectomy. SURGEON: Lucas Vela MD REPORT OF PROCEDURE: The patient's abdomen was prepped and draped in sterile fashion. A cutdown was made on the inferior aspect of the umbilicus. 0 Vicryls were placed on the fascia bilaterally and the fascia was incised with a 15-blade. I bluntly entered the peritoneal cavity and placed a 12-mm Froylan port. Under direct visualization, a 5 mm trocar was placed in the epigastrium and 2 more 5-mm trocars were placed in right subcostal region. The gallbladder was grasped and elevated. It showed some mild inflammatory changes, but there was noted to be a very large stone stuck in the infundibulum. The cystic artery and cystic duct were dissected free and these were clipped proximally and distally and ligated in standard fashion. The gallbladder was taken off the liver bed using electrocautery and placed into the right upper quadrant. Any bleeding from the liver bed was then treated with electrocautery. At this point, the ports and insufflation were then removed and the gallbladder was taken out through the umbilicus. The umbilical fascia was closed with interrupted 0 Vicryls times 3. The wounds were then irrigated out with normal saline and infused with 10 mL of 0.25% Marcaine with epinephrine. The skin incisions were all closed with subcutaneous 5-0 Monocryl and dressed appropriately. COMPLICATIONS: None. CONDITION: Stable. ANESTHESIA: General endotracheal and local. BLOOD LOSS: Minimal. TRANSINT:[id number] Voice Confirmation ID: [id number] DOCUMENT ID: [id number] LUCAS VELA MD CC: [id number] VASQUEZ [id number] DICTATION DATE: 01/31/1849 DRAWER FITTER: 01/31/18920 [facility] [address] [place] [address]
[~2018-01-31 05:48] MED LIST changes: +K-DUR20 MEQ PO; +NORCO 10-325 TA1 TAB PO; +PHENERGAN25 M1 PO; +TORADOL10 MG PO
[2018-01-31 06:24] LABS: BASOPHILS 0.2 % (0-2); HEMOGLOBIN 13.7 g/dL (12-16); IMMATURE GRANULOCYTES 0.2 % (0-5); LYMPHOCYTES 25.2 % (15-50); MCH 28.7 pg (26.0-34.0); MCHC 33.4 g/dL (31.0-37.0); MEAN PLATELET VOLUME 9.9 fL (7.4-10.4); MONOCYTES 7.8 % (2-11); NEUTROPHILS 63.6 % (40-80); PLATELET COUNT 266 10x3/uL (130-400); RBC 4.77 10x6/uL (4.00-5.40); RDW 14.9 % (11.5-14.5); WBC 12.7 10x3/uL (4.8-10.8)
[2018-01-31 06:32] LABS: HCG URINE NEGATIVE (NEGATIVE)
[2018-01-31 06:49] VITALS: BP 112/71; Ht 167.6 cm; Wt 66.7 kg
[2018-01-31 06:51] LABS: ALBUMIN 3.3 g/dL (3.4-5.0); ALKALINE PHOSPHATASE 59 U/L (46-116); ALT (SGPT) 33 U/L (10-68); BILIRUBIN - TOTAL 0.19 mg/dL (0.2-1.3); CALC OSMOLALITY 279 mosm/kg (275-300); CARBON DIOXIDE 29.5 mmol/L (21.0-32.0); CHLORIDE - SERUM 102 mmol/L (98-107); CREATININE - SERUM 0.5 mg/dL (0.6-1.3); GLUCOSE 94 mg/dL (74-106); POTASSIUM - SERUM 3.3 mmol/L (3.5-5.1); PROTEIN - SERUM 6.8 g/dL (6.4-8.2); SODIUM 140 mmol/L (136-145); UREA NITROGEN 14 mg/dL (7-18); eGFR NON AFRICAN AMERICAN > 90 mL/min (90-120)
[2018-01-31] MEDS ORDERED: NORCO 10-325 TA1 TAB PO (08:45)
== END 2018-01-31 11:15 | disposition home or self-care (01) ==
LOC: D.OPS 05:48 → D.PAN 08:00 → D.OPS 11:15
PROVIDERS: Surgery
DX: K81.0 Acute cholecystitis (principal); F17.200 Nicotine dependence, unspecified, uncomplicated; Z01.812 Encounter for preprocedural laboratory examination

== ENCOUNTER 2020-06-30 09:12 | Emergency (ER) | payer MEDICARE ==
[~2020-06-30] VITALS: Ht 167.6 cm; Wt 87.3 kg
[2020-06-30 09:17] VITALS: BP 137/87; Ht 167.6 cm; Wt 87.3 kg
[2020-06-30 09:38] LABS: BASOPHILS 0.6 % (0-2); EOSINOPHILS 4.1 % (0-7); HEMATOCRIT 41.1 % (36.0-48.0); HEMOGLOBIN 13.8 g/dL (12-16); IMMATURE GRANULOCYTES 0.3 % (0-5); LYMPHOCYTE ABS# 1.69 10x3/uL (1.18-3.74); LYMPHOCYTES 21.8 % (15-50); MCH 29.9 pg (26.0-34.0); MCHC 33.6 g/dL (31.0-37.0); MCV 89.2 fL (80.0-100.0); MEAN PLATELET VOLUME 9.6 fL (7.4-10.4); MONOCYTES 8.6 % (2-11); NEUTROPHIL ABS# 5.02 10x3/uL (1.56-6.13); NEUTROPHILS 64.6 % (40-80); PLATELET COUNT 239 10x3/uL (130-400); RBC 4.61 10x6/uL (4.00-5.40); RDW 14.9 % (11.5-14.5); WBC 7.8 10x3/uL (4.8-10.8)
[2020-06-30 09:41] LABS: BILIRUBIN NEGATIVE (NEGATIVE); KETONE NEGATIVE (NEGATIVE); NITRITE NEGATIVE (NEGATIVE); UROBILINOGEN NORMAL mg/dL (< 2)
[2020-06-30 09:48] LABS: CALC OSMOLALITY 279 mosm/kg (275-300); CALCIUM 8.7 mg/dL (8.5-10.1); CARBON DIOXIDE 23.5 mmol/L (21.0-32.0); CHLORIDE - SERUM 105 mmol/L (98-107); CREATININE - SERUM 0.7 mg/dL (0.6-1.3); GLUCOSE 106 mg/dL (74-106); POTASSIUM - SERUM 3.9 mmol/L (3.5-5.1); SODIUM 140 mmol/L (136-145); UREA NITROGEN 14 mg/dL (7-18); eGFR NON AFRICAN AMERICAN > 90 mL/min (90-120)
[2020-06-30 09:50] LABS: HCG SERUM NEGATIVE (NEGATIVE)
[2020-06-30 09:54] LABS: ALBUMIN 3.8 g/dL (3.4-5.0); ALKALINE PHOSPHATASE 60 U/L (30-120); ALT (SGPT) 33 U/L (10-68); PROTEIN - SERUM 7.5 g/dL (6.4-8.2)
== END 2020-06-30 11:35 | disposition home or self-care (01) ==
LOC: D.ER 09:12
PROVIDERS: Family Medicine
DX: R10.9 Unspecified abdominal pain (principal); N93.9 Abnormal uterine and vaginal bleeding, unspecified